=== PATIENT | female | born 1965 | race Native Hawaiian/Other Pacific Islander ===

== ENCOUNTER 2016-09-05 09:55 | Outpatient (CLI) | payer BC ==
[~2016-09-05 09:55] MED LIST: ASPIRIN LOW STR81 MG OR; CLARITIN RDT10 MG OR; LISI20TA31 OR; SIMV20TA2 PO; ZANTAC300 MG PO
== END 2016-09-05 19:43 | disposition home or self-care (01) ==
LOC: RAD 09:55
DX: M85.872 Other specified disorders of bone density and structure, left ankle and foot (principal)

== ENCOUNTER 2016-09-24 08:13 | Outpatient (CLI) | payer BC | END 2016-09-24 11:00 | disposition home or self-care (01) | LOC: MAMMO 08:13 | DX: Z12.31 Encounter for screening mammogram for malignant neoplasm of breast (principal) | CPT/HCPCS: G0202-TC ==

== ENCOUNTER 2017-12-18 07:40 | Outpatient (CLI) | payer BC | END 2017-12-18 19:10 | disposition home or self-care (01) | LOC: US 07:40 | DX: R10.13 Epigastric pain (principal); R10.84 Generalized abdominal pain; R14.0 Abdominal distension (gaseous) ==

== ENCOUNTER 2018-04-07 08:31 | Outpatient (CLI) | payer BC | END 2018-04-07 22:21 | disposition home or self-care (01) | LOC: MAMMO 08:31 | DX: Z12.31 Encounter for screening mammogram for malignant neoplasm of breast (principal) ==

== ENCOUNTER 2018-07-18 14:36 | Emergency (ER) | payer BC ==
[~2018-07-18] VITALS: Ht 162.6 cm; Wt 82.1 kg
[2018-07-18 14:37] VITALS: TEMP 98
[2018-07-18 16:33] VITALS: BP 178/81
== END 2018-07-18 17:10 | disposition left against medical advice (07) ==
LOC: ED 14:36
DX: R10.13 Epigastric pain (principal); K21.9 Gastro-esophageal reflux disease without esophagitis
CPT/HCPCS: 36415; 93005; 96374; 96375; 99284; J2405; J2550

== ENCOUNTER 2018-08-20 14:30 | Emergency (ER) | payer BC ==
[~2018-08-20] VITALS: Ht 162.6 cm; Wt 78.5 kg
[2018-08-20 15:37] LABS: PLATELET COUNT 319 K/uL (152-353)
[2018-08-20 15:47] LABS: POTASSIUM 3.3 mmol/L (3.6-5.2)
[2018-08-20 18:33] VITALS: BP 117/60; TEMP 98
== END 2018-08-20 18:34 | disposition home or self-care (01) ==
LOC: ED 14:30
PROVIDERS: Family Medicine
DX: K56.7 Ileus, unspecified (principal); K58.8 Other irritable bowel syndrome
CPT/HCPCS: 36415; 74022; 80053; 85027; 96360; 96372; 99284; J1885; J2175; J2405; J2550

== ENCOUNTER 2018-08-21 17:59 | Emergency (ER) | payer BC ==
[~2018-08-21] VITALS: Ht 162.6 cm; Wt 78.5 kg
[2018-08-21 19:38] LABS: PLATELET COUNT 322 K/uL (152-353)
[2018-08-21 23:00] VITALS: TEMP 97.3
[2018-08-22 01:10] VITALS: BP 122/51
== END 2018-08-22 01:12 | disposition short-term general hospital (02) ==
LOC: ED 17:59
PROVIDERS: Emergency Medicine
DX: K46.9 Unspecified abdominal hernia without obstruction or gangrene (principal); D72.829 Elevated white blood cell count, unspecified
CPT/HCPCS: 36415; 80053; 82150; 83605; 83690; 85027; 96365; 96375; 99285; J1885; J1956; J2270; J2405; J3490; Q9963

== ENCOUNTER 2018-08-22 01:15 | Outpatient (CLI) | payer BC | END 2018-08-22 02:30 | disposition short-term general hospital (02) | LOC: AMB 01:15 | DX: R10.9 Unspecified abdominal pain (principal) | CPT/HCPCS: A0425; A0427 ==

== ENCOUNTER 2018-09-11 10:16 | Emergency (ER) | payer BC ==
[~2018-09-11] VITALS: Ht 162.6 cm; Wt 73.0 kg
[2018-09-11] MEDS ORDERED: PROM25TA52 PO (10:31)
[2018-09-11 11:03] LABS: PLATELET COUNT 518 K/uL (152-353)
[2018-09-11 12:47] LABS: POTASSIUM 3.2 mmol/L (3.6-5.2); SODIUM 136 mmol/L (136-145)
[2018-09-11 16:54] VITALS: BP 120/76; TEMP 97.9
== END 2018-09-11 16:35 | disposition home or self-care (01) ==
LOC: ED 10:16
PROVIDERS: Emergency Medicine
DX: R19.7 Diarrhea, unspecified (principal); E86.0 Dehydration
CPT/HCPCS: 36415; 74022; 80053; 81000; 82150; 82550; 83690; 83735; 84484; 85027; 96360; 96375; 99284; J2405

== ENCOUNTER 2018-09-13 12:32 | Outpatient (CLI) | payer BC ==
[~2018-09-13 12:32] MED LIST changes: +PROM25TA52 PO
== END 2018-09-13 13:00 | disposition short-term general hospital (02) ==
LOC: AMB 12:32
DX: R10.84 Generalized abdominal pain (principal); R11.10 Vomiting, unspecified; R53.1 Weakness
CPT/HCPCS: A0425; A0429

== ENCOUNTER 2018-12-05 23:34 | Emergency (ER) | payer BC ==
[~2018-12-05] VITALS: Ht 162.6 cm; Wt 75.3 kg
[2018-12-06 00:36] LABS: PLATELET COUNT 135 K/uL (152-353)
[2018-12-06 01:18] LABS: POTASSIUM 3.8 mmol/L (3.6-5.2); SODIUM 142 mmol/L (136-145)
[2018-12-06] MEDS ORDERED: ZESTRIL30 MG PO (03:58)
[2018-12-06] MEDS ORDERED: LABETALOL200 MG PO (03:58)
[2018-12-06] MEDS ORDERED: DEXILANT60 M1 PO (04:01)
[2018-12-06] MEDS ORDERED: HAIR SKIN AND N1 TAB PO (04:01)
[2018-12-06] MEDS ORDERED: LORA10TA3 PO (04:02)
[2018-12-06] MEDS ORDERED: METAMUCIL0.52 GM PO (04:03)
[2018-12-06 04:17] VITALS: BP 177/88; TEMP 97.7
[2018-12-06] MEDS ORDERED: ESTRACE2 MG PO (08:08)
[2018-12-06] MEDS ORDERED: ALIGN4 MG PO (08:10)
[2018-12-06] MEDS ORDERED: GARLIQUE400 MG PO (08:11)
== END 2018-12-06 04:19 | disposition still patient (30) ==
LOC: ED 23:34
PROVIDERS: Family Medicine
DX: I10 Essential (primary) hypertension (principal)
CPT/HCPCS: 36415; 80053; 81000; 82550; 82553; 84484; 85027; 93005; 96365; 96374; 96375; 96376; 99285; J3490

== ENCOUNTER 2018-12-06 03:30 | Inpatient (IN) | payer BC ==
[~2018-12-06] VITALS: Ht 162.6 cm; Wt 77.6 kg
[2018-12-06] VITALS (46 sets, daily range): BP systolic 26–210; BP diastolic 71–163; TEMP 98.1–98.6; Ht 162.6 cm; Wt 77.6 kg
[2018-12-06] MEDS ORDERED: LABETALOL200 MG PO (03:58)
[2018-12-06] MEDS ORDERED: ZESTRIL30 MG PO (03:58)
[2018-12-06] MEDS ORDERED: DEXILANT60 M1 PO (04:01)
[2018-12-06] MEDS ORDERED: HAIR SKIN AND N1 TAB PO (04:01)
[2018-12-06] MEDS ORDERED: LORA10TA3 PO (04:02)
[2018-12-06] MEDS ORDERED: METAMUCIL0.52 GM PO (04:03)
[2018-12-06] MEDS ORDERED: ESTRACE2 MG PO (08:08)
[2018-12-06] MEDS ORDERED: ALIGN4 MG PO (08:10)
[2018-12-06] MEDS ORDERED: GARLIQUE400 MG PO (08:11)
[2018-12-06 09:42] LABS: PLATELET COUNT 270 K/uL (152-353)
[2018-12-06 09:52] LABS: POTASSIUM 3.1 mmol/L (3.6-5.2)
[2018-12-07] VITALS (23 sets, daily range): BP systolic 126–187; BP diastolic 70–93; TEMP 97.8–98.8
[2018-12-07 08:07] LABS: PLATELET COUNT 262 K/uL (152-353)
[2018-12-07 08:20] LABS: POTASSIUM 3.1 mmol/L (3.6-5.2)
[2018-12-08] VITALS: BP 194/98; TEMP 97.9
[2018-12-08 03:55] VITALS: TEMP 98.3
[2018-12-08 08:00] VITALS: BP 182/90; TEMP 97.5
[2018-12-08 12:00] VITALS: BP 146/79; TEMP 98.3
[2018-12-08 16:00] VITALS: BP 150/80; TEMP 97.6
[2018-12-08 20:00] VITALS: BP 162/88; TEMP 98.2
[2018-12-09] VITALS: BP 180/90; TEMP 98
[2018-12-09 04:00] VITALS: BP 184/88; TEMP 98
[2018-12-09 08:00] VITALS: BP 190/82; TEMP 97.4
[2018-12-09 12:00] VITALS: BP 168/90; TEMP 97.5
[2018-12-09 16:00] VITALS: BP 150/90; TEMP 98
[2018-12-09 19:46] VITALS: BP 190/106; TEMP 98.1
[2018-12-10 00:05] VITALS: BP 170/81; TEMP 98.3
[2018-12-10 04:00] VITALS: BP 142/72; TEMP 98.2
[2018-12-10 06:19] LABS: POTASSIUM 3.5 mmol/L (3.6-5.2)
[2018-12-10 08:00] VITALS: BP 158/80; TEMP 97.9
[2018-12-10 12:00] VITALS: BP 160/100; TEMP 97.4
[2018-12-10 16:00] VITALS: BP 172/90; TEMP 97.7
== END 2018-12-10 19:15 | disposition short-term general hospital (02) | DRG 305 ==
LOC: ICU 03:30 → MED/SURG 12-07 17:10
PROVIDERS: Family Medicine; Internal Medicine; ADMIT Family Medicine
DX: I16.1 Hypertensive emergency (principal); R51 Headache; E78.00 Pure hypercholesterolemia, unspecified; E78.1 Pure hyperglyceridemia; K59.09 Other constipation; K21.9 Gastro-esophageal reflux disease without esophagitis; F41.8 Other specified anxiety disorders; G47.33 Obstructive sleep apnea (adult) (pediatric)
CPT/HCPCS: 80048; 80053; 80061; 80307; 81000; 82530; 83690; 83880; 84443; 84484; 85027; 85379; 93306; J0360; J1650; J1885; J2550; J3410; J3490; Q0177

== ENCOUNTER 2018-12-10 19:17 | Outpatient (CLI) | payer BC ==
[~2018-12-10 19:17] MED LIST changes: +ALIGN4 MG PO; +DEXILANT60 M1 PO; +ESTRACE2 MG PO; +GARLIQUE400 MG PO; +HAIR SKIN AND N1 TAB PO; +LABETALOL200 MG PO; +LORA10TA3 PO; +METAMUCIL0.52 GM PO; +ZESTRIL30 MG PO
== END 2018-12-10 20:20 | disposition short-term general hospital (02) ==
LOC: AMB 19:17
DX: I10 Essential (primary) hypertension (principal)
CPT/HCPCS: A0425; A0429

== ENCOUNTER → 2020-07-24 | Outpatient (CLI) | payer BC, OTHER | LOC: INF 14:26 | PROVIDERS: ATTEND Internal Medicine | DX: Z23 Encounter for immunization (principal) | CPT/HCPCS: 96372 ==

== ENCOUNTER 2020-08-17 13:54 | Outpatient (CLI) | payer BC, OTHER | END 2020-08-17 23:21 | disposition home or self-care (01) | LOC: INF 13:54 | PROVIDERS: ATTEND Internal Medicine | DX: Z23 Encounter for immunization (principal) | CPT/HCPCS: 96372 ==

== ENCOUNTER 2021-05-24 11:15 | Outpatient (CLI) | payer BC, OTHER | END 2021-05-24 19:14 | disposition home or self-care (01) | LOC: INF 11:15 | PROVIDERS: ATTEND Internal Medicine | DX: Z23 Encounter for immunization (principal) | CPT/HCPCS: 0004A ==